=== PATIENT | male | born 1975 | race African-American/Black ===

== ENCOUNTER 2016-10-12 18:50 | Emergency (ER) | payer OTHER ==
[~2016-10-12] VITALS: Ht 175.3 cm; Wt 74.8 kg
[2016-10-12 19:08] VITALS: BP 143/84
[2016-10-12] MEDS ORDERED: POLYMYXIN B/TMP10 ML OPHTHALMIC (19:43)
[2016-10-12] MEDS ORDERED: IBUPROFEN 800800 M1 PO (19:43)
== END 2016-10-12 20:10 | disposition home or self-care (01) ==
LOC: ER 18:50
DX: H00.11 Chalazion right upper eyelid (principal); F17.210 Nicotine dependence, cigarettes, uncomplicated